=== PATIENT | female | born 1975 | race Caucasian/White ===

== ENCOUNTER 2017-04-23 09:06 | Emergency (ER) | payer OTHER ==
[~2017-04-23] VITALS: Ht 154.9 cm; Wt 98.0 kg
[2017-04-23 10:27] VITALS: BP 130/80
== END 2017-04-23 10:27 | disposition home or self-care (01) ==
LOC: ED 09:06
DX: J02.9 Acute pharyngitis, unspecified (principal); I10 Essential (primary) hypertension; E11.9 Type 2 diabetes mellitus without complications; E78.00 Pure hypercholesterolemia, unspecified
CPT/HCPCS: J1100; J1885

== ENCOUNTER 2018-10-25 08:25 | Emergency (ER) | payer OTHER ==
[~2018-10-25] VITALS: Ht 154.9 cm; Wt 97.1 kg
[2018-10-25 08:33] VITALS: Ht 154.9 cm; Wt 97.1 kg
[2018-10-25 10:15] VITALS: BP 135/85
== END 2018-10-25 10:15 | disposition home or self-care (01) ==
LOC: ED 08:25
DX: S52.514A Nondisplaced fracture of right radial styloid process, initial encounter for closed fracture (principal); R07.89 Other chest pain; V43.62XA Car passenger injured in collision with other type car in traffic accident, initial encounter; Y93.89 Activity, other specified; Y92.488 Other paved roadways as the place of occurrence of the external cause; Y99.8 Other external cause status
CPT/HCPCS: J1885; Q0092